=== PATIENT | female | born 1960 ===

== ENCOUNTER 2018-11-23 18:07 | Observation (INO) ==
[2018-11-23] MEDS ORDERED: Isovue-370 500 ML BOTTLE IVP ONE (18:15)
[2018-11-23 18:33] LABS: Basophils # 0.1 K/mcL (0.0-0.2); Basophils % 1.2 %; Eosinophils # 0.2 K/mcL (0.0-0.6); Eosinophils % 4.6 %; Hematocrit 48.6 % (35.3-44.9); Hemoglobin 15.5 g/dL (11.5-15.4); Immature Granulocytes % 0.2 % (0-4); Lymphocytes # 2.5 K/mcL (0.6-4.6); Lymphocytes % 49.1 %; Mean Corpuscular HGB Conc 31.9 g/dL (31.6-35.5); Mean Corpuscular Volume 81.5 fL (83.0-100.0); Mean Platelet Volume 9.7 fL (9.4-12.4); Monocytes # 0.4 K/mcL (0.0-1.3); Monocytes % 8.3 %; Neutrophils # 1.9 K/mcL (1.6-8.9); Platelet Count 157 K/mcL (140-400); Red Blood Count 5.96 M/mcL (3.82-4.97); Red Cell Distribution Width 21.3 % (11.5-14.5); Segmented Neutrophils % 36.6 %
[2018-11-23 18:54] LABS: BUN/Creatinine Ratio 19 (6-26); Blood Urea Nitrogen 14 mg/dL (8-23); Calcium 9.6 mg/dL (8.6-10.3); Carbon Dioxide 22 mEq/L (23-29); Chloride 110 mEq/L (98-107); Glucose 151 mg/dL (70-105); Osmolality,Calculated 295 (280-300); Potassium 3.6 mEq/L (3.5-5.1); Sodium 141 mEq/L (136-145); eGFR For Non-African Americans > 60 (> 60)
[2018-11-23 18:55] LABS: Troponin I < 0.03 ng/mL (< 0.04)
--- NOTE | 2018-11-23 20:08 | Emergency Department Note ---
Disposition Clinical Impression: Nausea, Bigeminy Chest pain Qualifiers: Chest pain type: unspecified Qualified Code(s): R07.9 - Chest pain, unspecified Disposition: Admitted As Inpatient Condition: Fair General Adult HPI - General Chief complaint: ED Chest Pain Stated complaint: chest pain Time Seen by Provider: 11/23/18 18:10 Source: patient, family Limitations: no limitations Nursing Notes Reviewed: Yes Vital Signs Reviewed: Yes - History of Present Illness HPI Narrative: 58-year-old female with significant past medical history of HHT presenting to the emergency department chief complaint of crushing substernal chest pain. Patient also discloses a history of flecinide use but is not sure why she is on it. Patient has never been to our facility before. She states after she got the phone with her daughter after a heated argument she started having crushing substernal chest pain. With nausea and diaphoresis. Denies any significant cardiac history. She states the pain radiated from her chest down towards her abdomen and into her back. Denies vomiting but does disclose shortness of breath. Patient denies any anticoagulation use. She states she cannot take aspirin due to her HHT. Pain Scale: 5 - Related Data Allergies Allergy/AdvReac Type Severity Reaction Status Date / Time Penicillins Allergy Itching Verified 11/23/18 18:21 All systems ED: reviewed and negative except as stated. Constitutional: Denies: fever Eyes: Reports: as per HPI ENT ED: Reports: as per HPI Cardiovascular: Reports: chest pain Respiratory: Reports: dyspnea Gastrointestinal: Reports: nausea Genitourinary: Reports: as per HPI Musculoskeletal: Reports: as per HPI Integumentary: Reports: as per HPI Neurological: Reports: as per HPI Psychiatric: Reports: as per HPI Endocrine: Reports: as per HPI Hematological/Lymphatic: Reports: as per HPI Allergic/Immunologic: Reports: as per HPI Past Medical History - Past Medical History Attestation: Yes The following information was validated with the patient. Medical history: Reports: cancer Psychiatric history: Reports: no psych history - Social History Smoking Status: Never smoker Alcohol use: Reports: none Drug use: Reports: none Physical Exam - General Limitations: no limitations General appearance: alert - Head Head exam: atraumatic, normocephalic, normal inspection - ENT ENT exam: mucous membranes moist - Neck Neck exam: Present: full ROM - Chest Chest inspection: Present: symmetric chest wall rise - Respiratory Respiratory exam: Present: normal lung sounds bilaterally. Absent: respiratory distress, wheezes - Cardiovascular Cardiovascular exam: Present: regular rate - Abdominal Exam Abdominal exam: Present: soft, Non-Tender. Absent: distention, guarding, rebound - Extremities Exam Extremities exam: Present: full ROM - Neurological Exam Neurological exam: Present: alert, oriented X3 - Psychiatric Psychiatric exam: Present: anxious - Skin Skin exam: Present: warm, intact Course Course Narrative: 58-year-old female presenting to the emergency department with acute onset sudd en stabbing chest pain. Causing nausea and diaphoresis. In the room patient looks in moderate distress. She is alert and oriented 3. Hemodynamically stable. EKG concerning for bigeminy. Patient sent to stat CTA of the chest. Chest pain rule out labs were ordered. At this time patient disposition most likely admission but pending results. Patient agrees with this plan. - Reevaluation(s) Reevaluation #1: Patient converted to sinus rhythm with no bigeminy and CTA and became asymptomatic. Laboratory analysis benign at this time. We will plan to admit the patient for further cardiac analysis and cardiac monitoring. Patient remains alert and oriented 3 and hemodynamically stable. Patient unable to take aspirin due to her HHT. I spoke with the hospitalist on-call who agrees to accept the patient at this time. Vital Signs Temperature 97.7 F 11/23/18 18:11 Pulse Rate 91 11/23/18 18:11 Respiratory Rate 17 11/23/18 18:11 Blood Pressure 148/118 11/23/18 18:11 O2 Sat by Pulse Oximetry 99 11/23/18 18:11 Temperature 97.7 F 11/23/18 18:11 Pulse Rate 82 11/23/18 19:39 Respiratory Rate 18 11/23/18 19:39 Blood Pressure 107/73 11/23/18 19:39 O2 Sat by Pulse Oximetry 100 11/23/18 19:39 Oxygen Delivery Oxygen Delivery Nasal Cannula Medical Decision Making - Lab Data Result diagrams: 11/23/18 18:21 11/23/18 18:21 Lab Results 11/23/18 11/23/18 Range/Units 18:21 18:21 WBC 5.1 (4.3-11.1) K/mcL RBC 5.96 H (3.82-4.97) M/mcL Hgb 15.5 H (11.5-15.4) g/dL Hct 48.6 H (35.3-44.9) % MCV 81.5 L (83.0-100.0) fL MCH 26.0 L (28.0-33.3) pg MCHC 31.9 (31.6-35.5) g/dL RDW 21.3 H (11.5-14.5) % Plt Count 157 (140-400) K/mcL MPV 9.7 (9.4-12.4) fL Immature Gran % 0.2 (0-4) % Seg Neutrophils % 36.6 % Lymphocytes % 49.1 % Monocytes % 8.3 % Eosinophils % 4.6 % Basophils % 1.2 % Neutrophils # 1.9 (1.6-8.9) K/mcL Lymphocytes # 2.5 (0.6-4.6) K/mcL Monocytes # 0.4 (0.0-1.3) K/mcL Eosinophils # 0.2 (0.0-0.6) K/mcL Basophils # 0.1 (0.0-0.2) K/mcL Sodium 141 (136-145) mEq/L Potassium 3.6 (3.5-5.1) mEq/L Chloride 110 H (98-107) mEq/L Carbon Dioxide 22 L (23-29) mEq/L BUN 14 (8-23) mg/dL Creatinine 0.73 (0.60-1.20) mg/dL Est GFR ( Amer) > 60 (> 60) Est GFR (Non-Af Amer) > 60 (> 60) BUN/Creatinine Ratio 19 (6-26) Glucose 151 H (70-105) mg/dL Calculated Osmolality 295 (280-300) Calcium 9.6 (8.6-10.3) mg/dL Troponin I < 0.03 (< 0.04) ng/mL - EKG Data EKG #1 EKG attestation: Yes I reviewed and interpreted this EKG. EKG results narrative: Sinus rhythm. [address] interval 141, QRS 100, QTC 475. No sign of acute ST segment elevation or ischemia. EKG #2 EKG attestation: Yes I reviewed and interpreted this EKG. EKG results narrative: Sinus rhythm. [address] interval 141, QRS 100, QTC 475. No sign of acute ST segment elevation or ischemia. Attestation Statement - Attestation Attestation: I, Harley Larson, examined this patient and my medical decision-making was reviewed with the [employer]/PA/Advanced Practice Nurse/Resident Physician. I agree with the documented findings, disposition and treatment plan as described except to the extent set forth below. 58-year-old female presents emergency Department with concerns of acute onset chest pain. Patient has a history of Tumrv-[id number]-[id number] syndrome, pulmonary hypertension, multiple myeloma. Patient states the pain is sharp and stabbing and feels like her chest and a rip apart, she states the chest pain radiates to her back and abdomen. She was immediately sent to CTA for further evaluation of possible aortic dissection which was negative. Patient states her symptoms started after she received bad news from her daughter. EKG showed a bigeminy pattern with one-to-one PVCs. Otherwise looked like a sinus rhythm, did not show evidence of STEMI. Initial troponin negative. Patient will be admitted to hospitalist for further care and evaluation.
--- NOTE | 2018-11-23 20:35 | Internal Med History&Physical ---
Date of Encounter: 11/23/18 Time of Encounter: 20:32 Internal Medicine - H&P: HPI Chief complaint: chest pain Admitted From: Home Plans for Post Hospital Care: Home History of present illness: Juanpablo Cunningham is a 58 year old woman who has hereditary hemorrhagic telangiectasia, multiple myeloma currently on lenalidomide, an unspecified arrhythmia for which she is on flecainide as well as multiple episodes of DVT but could not receive anticoagulant therapy due to her bleeding diathesis who presents emergency room with a complaint of acute onset chest pain. She says that she was in a restaurant with her friend and which time she got on the phone with her daughter and had a big argument after which she developed intense midsternal chest pain without characteristic radiation but was accompanied by shortness of breath. She was rushed over here at which time she was seen to have bigeminy on EKG. She was taken to CT for dissection rule out and subsequently converted back to normal sinus rhythm at which time her chest pain resolved without pharmacologic intervention. On my assessment she was sitting up in bed in no acute distress. She denies this ever happening to her in the past and says she takes flecainide because she was told her heart skips a beat. She is unable to take antiplatelet/anticoagulant therapy. Past Med Surg Social Fam HX - Past Medical History Medical history: cancer Additional medical history: pulmonary HTN, HHT Psychiatric history: no psych history - Past Surgical History Additional surgical history: brain surgery - Social History Smoking Status: Never smoker Alcohol use: none Drug use: none Internal Medicine - H&P: Meds Allergy/AdvReac Type Severity Reaction Status Date / Time Penicillins Allergy Itching Verified 11/23/18 18:21 All Systems PM: A 10-system review of systems was performed and is negative for pertinent findings except as documented above in the HPI.Family history reviewed and found non-contributory. - Constitutional Vitals: Temp Pulse Resp BP Pulse Ox 97.7 F 82 18 107/73 100 11/23/18 18:11 11/23/18 19:39 11/23/18 19:39 11/23/18 19:39 11/23/18 19:39 Exam: Vitals: Reviewed General: Well appearing -[place] woman sitting up in bed in no acute distress. Skin: Warm and supple. HEENT: Moist mucous membranes. No conjunctivae pallor. Neck: No lymphadenopathy. No JVD. No carotid bruits. No palpable thyroid. Chest: Normal thoracic expansion. Normal breath sounds. Clear to auscultation. Heart: irregular. Systolic murmur auscultated at the right upper sternal border. Abdomen: Non-distended, soft and non-tender to palpation. No peritoneal reaction. Extremities: No clubbing, cyanosis or edema. No calf tenderness. Normal distal pulses. Neurological: Awake, alert and oriented to person, place and time. No focal deficits. Psych: Affect appropriate. Internal Med - H&P Results - Labs CBC & Chem 7: 11/23/18 18:21 11/23/18 18:21 Labs: Short CBC 11/23/18 Range/Units 18:21 WBC 5.1 (4.3-11.1) K/mcL Hgb 15.5 H (11.5-15.4) g/dL Hct 48.6 H (35.3-44.9) % Plt Count 157 (140-400) K/mcL Neutrophils # 1.9 (1.6-8.9) K/mcL BMP 11/23/18 18:21 Sodium 141 Potassium 3.6 Chloride 110 H Carbon Dioxide 22 L BUN 14 Creatinine 0.73 Glucose 151 H Calcium 9.6 Cardiac Enzymes 11/23/18 Range/Units 18:21 Troponin I < 0.03 (< 0.04) ng/mL - Impressions ITS Impressions CT Dissection 11/23/18 18:15 IMPRESSION: 1. Normal CTA. 2. Centrilobular nodules in the left lower lobe with scattered ground-glass opacities in the lower right lung. Pattern is nonspecific but may suggest an acute infectious or inflammatory process. No focal consolidation. 3. Questionable heterogeneity within the liver parenchyma difficult to evaluate on angiographic exam. Recommend correlation with liver function studies. Outpatient follow-up may be considered with ultrasound if clinically indicated. D/ / Marbin Shepherd MD / Marbin Shepherd MD Interpreting Provider: Marbin Shepherd MD - Assessment and plan (1) Chest pain Current Visit: Yes Status: Acute Assessment and plan: The patient has no significant risk factors such as HTN, DM, HLD, tobacco use or a family history. Her chest pain presented after an argument and it is possible the pain was precipitated from stress. It resolved on its own spontaneously without pharmacologic intervention. Although her assessment reveals a ventricular arrhythmia and a heart murmur, these are reportedly not new and has been evaluated for years. One must acknowledge that she is current receiving a therapy that can induce cardiac complications especially at her current age therefore she will be observed on telemetry and monitored for any chest pain recurrence. Will also get a TTE in the morning for assessment of her cardiac morphology. Qualifiers: Chest pain type: unspecified Qualified Code(s): R07.9 - Chest pain, unspecified (2) Multiple myeloma Current Visit: Yes Status: Acute Assessment and plan: Receiving care; on lenalidomide. No signs of kidney injury, anemia or hypercalcemia. Unclear if she has underlying bony lesions. Qualifiers: Multiple myeloma remission status: unspecified Qualified Code(s): C90.00 - Multiple myeloma not having achieved remission (3) VTE (venous thromboembolism) Current Visit: Yes Status: Acute Assessment and plan: Reports multiple episodes of lower extremity DVTs in the past for which she reportedly did not receive anticoagulation but seemingly never had a Radha filter placed. Anti-embolic stockings ordered for prophylaxis. (4) HHT (hereditary hemorrhagic telangiectasia) Current Visit: Yes Status: Acute Assessment and plan: No signs of bleeding at this time. - Time Spent With Patient Total time spent is greater than 50% in coordination of care (as documented) at patient's floor/unit and/or counseling patient: Greater than 35 minutes
[2018-11-23] MEDS: Nitroglycerin 0.4 MG TAB.SUBL SL PRN ×2 (20:57→21:26)
[2018-11-24 00:34] LABS: INR 1.1; Prothrombin Time 12.1 Seconds (9.4-12.1)
[2018-11-24 00:37] LABS: Activated Partial Thrombo Time 31.9 Seconds (26.0-36.0)
[2018-11-24] MEDS ORDERED: Ondansetron ODT 4 MG TAB.RAPDIS PO PRN (01:23)
[2018-11-24] MEDS ORDERED: Benzonatate 100 MG CAPSULE PO PRN (01:23)
[2018-11-24] MEDS ORDERED: TADALAFIL 40 MG PO SCH (09:00)
--- NOTE | 2018-11-24 11:52 | Cardiology Consult Note ---
Date of Encounter: 11/24/18 Time of Encounter: 12:00 Assessment and Plan (1) Bigeminy Current Visit: Yes Status: Acute Currently on flecainide, presumably for PVC per history. Unable to tolerate antiplatelet or anticoagulation. TTE, low dose metoprolol. No LHC given inability to tolerate antiplatelets or AC - will treat conservatively. (2) Chest pain Current Visit: Yes Status: Acute unable to tolerate AC or antiplatelets per patient, low dose BB Qualifiers: Chest pain type: unspecified Qualified Code(s): R07.9 - Chest pain, unspecified (3) HHT (hereditary hemorrhagic telangiectasia) Current Visit: Yes Status: Acute Discussion w patient/family: The assessment and plan as outlined above was discussed with the patient and/or family members who expressed understanding and agreement. All questions were answered. Thank you for involving us in the care of your patient. Please call with any questions. History of Present Illness Consult date: 11/24/18 Consult reason: chest pain History of present illness: Ms. Cunningham is a 58 year old female with history of unspecified arrhythmia ("skipped beats") on flecainide, hereditary hemorrhagic telangiectasia, multiple myeloma currently on lenalidomide, multiple episodes of DVT but could not receive anticoagulant therapy due to her bleeding diathesis who presents e [facility] room with a complaint of acute onset chest pain. She says that she was in a restaurant with her friend and which time she got on the phone with her daughter and had a big argument after which she developed intense midsternal chest pain without characteristic radiation but was accompanied by shortness of breath. She was rushed over here at which time she was seen to have bigeminy on EKG. She was taken to CT for dissection rule out and subsequently converted back to normal sinus rhythm at which time her chest pain resolved without pharmacologic intervention. She is unable to take antiplatelet/anticoagulant therapy. She has had no recurrence in chest pain today. Tana Mayo, cardiology [employer], was to see her but patient was very antagonistic to her. Past Med Surg Social Fam HX - Past Medical History Medical history: cancer Additional medical history: MULTI MYELOMA , HHT , PULMONARY HYPERTENSION Psychiatric history: no psych history - Past Surgical History Additional surgical history: brain surgery, NOSE SURGERY X2 - Social History Smoking Status: Never smoker Alcohol use: none Drug use: none - Family History Father Hx Family Cancer: Yes (STOMACH CANCER) Mother Hx Family Autoimmune Disorders: Yes (HHT) Medications and Allergies Acyclovir [Zovirax] 400 mg PO Q4HR 11/23/18 [History] Albuterol Sulfate [Albuterol Inhaler] 1 puff IH Q4HR PRN 11/23/18 [History] Ambrisentan [Letairis] 10 mg PO DAILY 11/23/18 [History] Benzonatate [Tessalon] 100 mg PO TID PRN 11/23/18 [History] Flecainide 150 mg PO Q12HR 11/23/18 [History] Lenalidomide [Revlimid] 10 mg PO DAILY 11/23/18 [History] Omeprazole [PriLOSEC] 20 mg PO DAILY 11/23/18 [History] Ondansetron HCl 8 mg PO Q8HR PRN 11/23/18 [History] Tadalafil [Adcirca] 40 mg PO DAILY 11/23/18 [History] Allergy/AdvReac Type Severity Reaction Status Date / Time Penicillins Allergy Itching Verified 11/23/18 18:21 All Systems Review: The remainder of the systems were reviewed and are negative - Constitutional Constitutional: no chills, no fever(s) - EENT Eyes: no blurred vision, no loss of vision Nose, mouth and throat: no bleeding gums, no epistaxis - Cardiovascular Cardiovascular: chest pain at rest, no syncope - Respiratory Respiratory: no hemoptysis, no wheezing - Gastrointestinal Gastrointestinal: no hematemesis, no hematochezia - Genitourinary Genitourinary: no hematuria, no nocturia - Musculoskeletal Musculoskeletal: no arthralgias, no myalgias - Integumentary Integumentary: no rash, no unusual bruising - Neurological Neurological: no memory loss, no syncope - Psychiatric Psychiatric: no hallucinations, no panic attacks Physical Examination Vital Signs, Last 4 Hours Temp Pulse Resp BP Pulse Ox 11/24/18 11:38 97.7 F 82 16 176/104 96 General: Conversant HEENT: Atraumatic Neck: No JVD Cardiac: Reg Rate and Rhythm Lungs: Normal Breath Sounds Neuro: Alert and responsive Abdomen: Soft Skin: No rashes noted on visualized skin Musculoskeletal: No Chest Wall Tenderness Extremities: No Edema Results 11/23/18 18:21 11/23/18 18:21 Lab Results 11/23/18 11/23/18 11/24/18 18:21 18:21 00:00 WBC 5.1 Hgb 15.5 H Hct 48.6 H Plt Count 157 INR APTT Sodium 141 Potassium 3.6 Chloride 110 H Carbon Dioxide 22 L BUN 14 Creatinine 0.73 Glucose 151 H Calcium 9.6 Troponin I < 0.03 0.07 H* 11/24/18 11/24/18 11/24/18 00:06 00:06 06:20 WBC Hgb Hct Plt Count INR 1.1 APTT 31.9 Sodium Potassium Chloride Carbon Dioxide BUN Creatinine Glucose Calcium Troponin I 0.05 H* - EKG Interpretation EKG results cardiology: personally reviewed Consult Discharge Plan - Plan Referrals: NONE,PCP [Primary Care Provider] -
--- NOTE | 2018-11-24 12:28 | Event Note ---
Date of Encounter: 11/24/18 Time of Encounter: 11:00 - Cardiology Event Note I attempted to see patient, however patient angry that she had not seen an "actual associate professor of anthropology" yet and refused to be seen by myself. updated and will see patient.
--- NOTE | 2018-11-24 14:38 | Discharge Summary ---
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-up with natural gas treating unit operator initiated on metoprolol 25 mg daily continue flecainide Orders not resulted at time of discharge: Pending orders 11/23/18 18:11 EKG [ECG 12 lead ECG] [ECG] Stat Date of Encounter: 11/24/18 Time of Encounter: 14:36 - Discharge Diagnosis (1) Chest pain Priority: Primary Status: Acute Qualifiers: Chest pain type: unspecified Qualified Code(s): R07.9 - Chest pain, unspecified (2) Multiple myeloma Priority: Secondary Status: Acute Qualifiers: Multiple myeloma remission status: unspecified Qualified Code(s): C90.00 - Multiple myeloma not having achieved remission (3) VTE (venous thromboembolism) Priority: Secondary Status: Acute (4) HHT (hereditary hemorrhagic telangiectasia) Priority: Secondary Status: Acute Hospital course: Ms. Cunningham is a 58 year old female past medical history of hereditary hemorrhagic telangiectasia multiple myeloma currently on lenalidomide pulmonary hypertension and unspecified arrhythmia which she is taking flecainide as well as a multiple episodes of DVTs but cannot receive anticoagulant therapy due to bleeding diatheses presented to [facility] ED with acute onset of chest pain. According to the patient she was in a restaurant with her friend when she received a phone call from her daughter and she had a disagreement with her on the phone. She became very upset and short of breath experiencing intense midsternal chest pain. She was brought to the emergency department was found to be in bigeminy. CT for dissection was ruled out and eventually patient converted back to normal sinus rhythm and her chest pain resolved without any further neurological intervention. Troponin was slightly elevated on presentation however she is unable to take any anticoagulation cardiology was consulted recommending low-dose metoprolol unable to perform LHC given inability to tolerate antiplatelets or AC and will treat conservatively-TTE completed which did show EF of 55-60% normal LV chamber size wall thickness and function mild left ventricular diastolic dysfunction Kaylee dilated right ventricle with normal function moderate to severe pulmonary hypertension estimated RVSP is 55 mmHg no significant valvular dysfunction. Patient has not had any chest pain during this admission however she has been upset and has been requesting to be discharged. Patient does have a follow-up appointment with her natural gas treating unit operator on November 27. Cardiology okay with discharge as long as patient is feeling well and TTE stable. Currently patient is hemodynamically stable at this time. Patient requesting prescription for flecainide since she states she is almost out. I will also give her prescription for her low dose metoprolol per cardiology's recommendation- advised patient to monitor heart rate and blood pressure and to hold if systolic is less than 100 and heart rate less than 60. Patient verbalized understanding. She is ready for discharge at this time - Time Spent with Patient Total time spent providing and/or coordinating discharge services: - Discharge Medications Prescriptions: Flecainide 150 mg PO Q12HR #60 tablet Metoprolol XL (24 HR) Succ [Toprol Xl] 25 mg PO DAILY #30 tab.er.24h Home Medications: Acyclovir [Zovirax] 400 mg PO Q4HR 11/23/18 [History] Albuterol Sulfate [Albuterol Inhaler] 1 puff IH Q4HR PRN 11/23/18 [History] Ambrisentan [Letairis] 10 mg PO DAILY 11/23/18 [History] Benzonatate [Tessalon] 100 mg PO TID PRN 11/23/18 [History] Lenalidomide [Revlimid] 10 mg PO DAILY 11/23/18 [History] Omeprazole [PriLOSEC] 20 mg PO DAILY 11/23/18 [History] Ondansetron HCl 8 mg PO Q8HR PRN 11/23/18 [History] Tadalafil [Adcirca] 40 mg PO DAILY 11/23/18 [History] Flecainide 150 mg PO Q12HR #60 tablet 11/24/18 [Rx] Metoprolol XL (24 HR) Succ [Toprol Xl] 25 mg PO DAILY #30 tab.er.24h 11/24/18 [Rx] Allergies/Adverse Reactions: Allergy/AdvReac Type Severity Reaction Status Date / Time Penicillins Allergy Itching Verified 11/23/18 18:21 Date of admission: 11/23/18 19:52 Primary care physician: PCP NONE Consults: 11/24/18 01:25 Consult to Cardiology [CONS] Routine Comment: Consulting Provider: [facility] [place] Reason for Consult: 58 year old woman on flecainide for an unspecified arrhythmia presenting with acute onset chest pain, seen to have bigeminy on initial presentation which spontaneously resolved and chest pain improved. Initial troponin negative. Had an elevation to 0.07. Has hereditary hemorrhagic telangiectasia therefore has been advised not to receive antiplatelet/anticoagulant therapy. Call Completed: No Discharging clinician: Fartun Ordonez Anticipated date of discharge: 11/24/18 - Constitutional Vitals: Temp Pulse Resp BP Pulse Ox 97.7 F 82 16 176/104 96 11/24/18 11:38 11/24/18 11:38 11/24/18 11:38 11/24/18 11:38 11/24/18 11:38 Exam: Vitals: Reviewed General: Well appearing -[place] woman sitting up in bed in no acute distress. Skin: Warm and supple. HEENT: Moist mucous membranes. No conjunctivae pallor. Neck: No lymphadenopathy. No JVD. No carotid bruits. No palpable thyroid. Chest: Normal thoracic expansion. Normal breath sounds. Clear to auscultation. Heart: Regular rate and rhythm Abdomen: Non-distended, soft and non-tender to palpation. No peritoneal reaction. Extremities: No clubbing, cyanosis or edema. No calf tenderness. Normal distal pulses. Neurological: Awake, alert and oriented to person, place and time. No focal deficits. Psych: Affect appropriate. - Patient Status Disposition: Home, Self-Care Condition: Fair Functional capacity at discharge: independent ambulation Overall status at discharge: patient is back to baseline - Discharge Instructions Instructions: Metoprolol (By mouth), Flecainide (By mouth), Chest Pain (DC) Follow Up With: NONE,PCP [Primary Care Provider] - - Diet and Activity Activity: increase activity as tolerated Diet: advance to your usual diet
[2018-11-24 17:05] VITALS: BP 109/74
[2018-11-25] MEDS ORDERED: Metoprolol XL (24 HR) Succ 25 MG TAB.ER.24H PO SCH (09:00)
--- NOTE | 2018-11-26 22:37 | Electrocardiograph Report ---
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
--- NOTE | 2018-11-26 22:48 | Electrocardiograph Report ---
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
== END 2018-11-24 21:31 | disposition home or self-care (01) ==
LOC: EMEROOARM 18:07 → 3BNU 18:07
PROVIDERS: ADMIT Internal Medicine; ATTEND Internal Medicine